=== PATIENT | male | born 1945 | race Caucasian/White ===

== ENCOUNTER 2017-06-05 13:46 | Outpatient (CLI) | payer MEDICARE | END 2017-06-05 13:47 | disposition home or self-care (01) | LOC: BICULT 13:46 | PROVIDERS: ATTEND Family Medicine | DX: E03.9 Hypothyroidism, unspecified (principal); N28.1 Cyst of kidney, acquired | CPT/HCPCS: 76536; 76770 ==

== ENCOUNTER 2017-07-11 09:28 | Outpatient (CLI) | payer MEDICARE | END 2017-07-11 09:29 | disposition home or self-care (01) | LOC: BICMRI 09:28 | PROVIDERS: ATTEND Psychiatry & Neurology Neurology | DX: R26.9 Unspecified abnormalities of gait and mobility (principal); M47.892 Other spondylosis, cervical region; G93.9 Disorder of brain, unspecified | CPT/HCPCS: 70551; 72141 ==

== ENCOUNTER 2019-01-27 10:42 | Outpatient (CLI) | payer MEDICARE ==
--- NOTE | 2019-01-27 10:58 | RAD ---
2 view chest: [01/27/2019] Comparion:01/11/2011 HISTORY: Cough for one month FINDINGS: There is a new focal area of pulmonary parenchymal opacity in the inferior left lung base l ateral to the left heart border. This likely overlies the cardiac silhouette on the lateral examination suggesting a focal area of infectious pneumonitis within the lingula. Midline sternotomy wires are present. There is mild increased linear interstitial density and pulmonary hyperinflation. IMPRESSION: New focal area of increased density within the lingula suggest infectious pneumonitis/asp iration. Recommend follow-up imaging following treatment to document resolution.
== END 2019-01-27 10:43 | disposition home or self-care (01) ==
LOC: BICRAD 10:42
PROVIDERS: ATTEND Family Medicine
DX: J01.01 Acute recurrent maxillary sinusitis (principal); J98.4 Other disorders of lung
CPT/HCPCS: 71046

== ENCOUNTER 2019-02-21 16:05 | Inpatient (IN) | payer MEDICARE ==
[~2019-02-21 16:05] MED LIST: Iopamidol-370 76% 500 ML 1 ML ONE
[2019-02-21 17:05] LABS: #Eosinphils 0.3 thou/uL (0.0-0.7); #Lymphocytes 2.3 thou/uL (1.20-3.40); #Monocytes 1.2 thou/uL (0.11-0.59); #Neutrophils 6.1 thou/uL (1.40-6.50); %Basophils 0.2 % (0.0-1.0); %Eosinophils 3.2 % (0.0-10.0); %Lymphocytes 23.5 % (21.0-51.0); %Monocytes 11.6 % (0.0-10.0); %Neutrophils 61.4 % (42.0-75.0); Hemoglobin 14.5 g/dL (14.0-18.0); Mean Corpuscular HGB CONC 32.3 g/dL (32.0-36.0); Mean Corpuscular Hemoglobin 30.2 pg (27.0-31.0); Mean Corpuscular Volume 93.3 fL (78.0-98.0); Mean Platelet Volume 7.1 fL (7.4-10.4); Platelet Count 222 thou/uL (130-400); RBC Distribution Width 12.7 % (11.5-14.5); Red Blood Cell (RBC) Count 4.81 mill/uL (4.70-6.10)
--- NOTE | 2019-02-21 17:19 | RAD ---
2 view chest: [02/21/2019] Comparison:01/27/2019 HISTORY: Three-week history of cough FINDINGS: There is an ill-defined focal area of increased density within the left lung base laterally , slightly less conspicuous than on the prior examination. Midline sternotomy wires are present. Mediastinal clips are noted. No pneumothorax or pleural fluid. Pulmonary hyperinflation noted. IMPRESSION: Persistent focus of increased density in the left costophrenic angle. Recommend CT examin ation to exclude an underlying pulmonary parenchymal nodule/mass. CODE T
[2019-02-21 17:25] LABS: ALT (SGPT) 15 U/L (8-55); AST (SGOT) 15 U/L (5-34); Albumin 3.9 g/dL (3.4-4.8); Alkaline Phosphatase 112 U/L (40-110); Anion Gap 10 mmol/L (10-20); BUN (Urea Nitrogen) 20 mg/dL (8.4-25.7); Bilirubin, Total 0.5 mg/dL (0.2-1.2); Calc. Creatinine Clearance 0 mL/min (70-130); Carbon Dioxide 29 mmol/L (23-31); Chloride 108 mmol/L (98-107); Estimated GFR-MDRD 42; Globulin 3.3 g/dL (2.4-3.5); Glucose 100 mg/dL (83-110); Potassium 4.7 mmol/L (3.5-5.1); Protein, Total 7.2 g/dL (5.8-8.1); Sodium 142 mmol/L (136-145)
[2019-02-21 17:29] LABS: Calcium 12.3 mg/dL (7.8-10.44)
--- NOTE | 2019-02-21 17:56 | CT ---
CTA Angio Chest W WO Con History: Elevated d-dimer. Productive cough. Comparison: Radiograph same day Findings: CT angiogram chest performed after the intravenous administration of contrast. 3-D renderin g provided. There is an embolism within the right lower lobe pulmonary artery extending into multiple segmental branches. There is also an embolus within a segment branch left upper lobe pulmona ry artery. Poor enhancement within the lingular branch left lower lobe with peripheral pleural consolidation which may reflect an infarct. No pleural effusion. Mild bronchiectasis both lower lobes with low-grade endobronchial debris likely reflecting resolving infection. Faint peripheral opacities right lower lobe. No pericardial effusion. Old L1 compression deformity of the superior endplate. No acute rib fracture . Impression: 1. Multifocal segmental pulmonary emboli as described without evidence of right heart strain.. 2. Findings of resolving right lower lobe and left lower lobe pneumonia. 3. Multifocal renal cysts. 4. Likely a small infarct within lateral lingula. 5. Small sebaceous cyst right lateral hemithorax axial image 110. Code CR: ER physician at 5:52 PM
[2019-02-21] MEDS ORDERED: Enoxaparin Sodium 30 MG/0.3 ML SYRINGE ONE ×2 (18:07→18:08)
[2019-02-21] MEDS ORDERED: Enoxaparin Sodium 60 MG/0.6 ML SYRINGE ONE (18:07)
--- NOTE | 2019-02-21 21:38 | HP ---
PRESENTING COMPLAINT: Worsening cough. HISTORY OF PRESENT ILLNESS: Mr. Tyler Worthy is a 73-year-old male with past medical history of hypertension; hyperlipidemia; diabetes mellitus; CAD, status post CABG; and former smoker, who developed cough since the last six weeks. He had a chest cough, nonproductive of sputum. The patient stated he received treatment with cefdinir and later Levaquin 3 weeks ago with no significant change in cough symptoms. He had a chest x-ray done 3 weeks ago that shows small right middle lobe infiltrate. He also received a dose of methylprednisolone. He denies any wheezing. He denies any shortness of breath. He states cough symptoms appear to be worse at night when lying down. He had a recent travel to [place]. Driving the car with his son, it nearly took over 11 days back and forth. He subsequently traveled another 300 miles by himself 3 days after returning from the [employer] journey. He denies any family history of blood clots. He has never had any bleeding disorder or clotting disorder in the past. He was sent by his PMD today for repeat workup because of the persistent cough. Further imaging showed evidence of multifocal pulmonary embolism as well as resolving right lower lobe pneumonia. There appears to be left lingular infarct. PAST MEDICAL HISTORY: Significant for hypertension, hyperlipidemia, coronary artery disease, diabetes mellitus, history of status post CABG, history of BPH, history of chronic kidney disease stage 3 with baseline creatinine ranging from 1.5 to 1.8 since the last one year. PAST SURGICAL HISTORY: Hernia repair, femoral fracture repair, and CABG. SOCIAL HISTORY: Patient resides in community with his spouse. He is fully functional at baseline. History of former tobacco use. No history of alcohol or illicit drug use. FAMILY HISTORY: Significant for mother with stomach cancer. ALLERGIES: NO KNOWN DRUG ALLERGIES. HOME MEDICATIONS: See medication list. REVIEW OF SYSTEMS: All systems review x14 were negative except as mentioned above. PHYSICAL EXAMINATION: CURRENT VITALS: Blood pressure of 159/69, pulse of 62, respiratory rate of 23, O2 saturation is 95% on room air. GENERAL: Average-built elderly male, sitting in bed. Intermittent cough spells noted. HEENT: Head is atraumatic, normocephalic. Pupils equal, reactive to light. Anicteric. [place] conjunctivae. Moist oral mucosa. NECK: No JVD. No carotid bruit. RESPIRATORY: Faint expiratory wheezes. No crepitations. CARDIOVASCULAR: S1, S2. Rate and rhythm regular. GASTROINTESTINAL: Abdomen is full, soft, nontender. Bowel sounds positive. EXTREMITIES: No pedal edema. No calf tenderness bilaterally. Negative Homans sign. NEUROLOGIC: Patient is alert, oriented. Cranial nerves 2-12 grossly intact. LABORATORY DATA: Sodium 142, potassium 4.7, creatinine 1.6, calcium 12.3. Troponin less than 0.01. BNP 53, chloride 108. WBC 10, platelet count 220, hemoglobin 14. EKG shows normal sinus rhythm at 72 beats per minute. Chest x-ray shows persistent focus of increased density in the left costophrenic angle. CT of the chest shows multifocal segmental pulmonary emboli without evidence of right heart strain. Findings of resolving right lower and left lower lobe pneumonia, multifocal renal cyst and small infarct in lateral lingula. IMPRESSION: 1. Multifocal pulmonary embolism. 2. Bilateral pneumonia - improving. 3. Hypertension. 4. Diabetes mellitus. 5. Hypercalcemia. 6. Chronic kidney disease stage 3 - stable. PLAN: 1. We will admit patient to observation. We will manage patient for the following;. a. Pulmonary embolism. We will obtain Factor V Leiden, prothrombin level as well as lupus anticoagulant level. Patient already given Lovenox. We will start patient on Eliquis. Risk of bleeding discussed. If unable to obtain Eliquis, we will consult Case Management for medication obtaining pre-approval. b. Continue to monitor overnight. Continue pulse oximetry. 2. Hypercalcemia. We will start gentle IV fluid hydration. We will obtain vitamin D and PTH levels. 3. Hypertension. Resume home medication regimen. 4. Chronic kidney disease stage 3, stable. Continue to monitor. 5. Diabetes mellitus. Insulin sliding scale. 6. DVT prophylaxis. Plan to start Eliquis. 7. Advanced directives. Patient is full code. TIME SPENT: Total time spent review of record discussion with patient and evaluation greater than 60 minutes. Job ID: [id number]
[2019-02-21] MEDS ORDERED: Dextrose 50% Abboject 50 ML SYRINGE SLOW IVP PRN (22:18)
[2019-02-21] MEDS ORDERED: Dextrose 5% in Water 1,000 ML IV PRN (22:18)
[2019-02-21] MEDS ORDERED: Acetaminophen 325 MG TAB PO PRN (22:18)
[2019-02-21] MEDS ORDERED: HumaLOG 300 UNITS/3 ML VIAL SC PRN (22:18)
[2019-02-21] MEDS ORDERED: Ondansetron PF 4 MG/2 ML Vial IVP PRN (22:18)
[2019-02-21] MEDS ORDERED: Guaifenesin DM 100-10/5 ML UDCUP PO PRN (22:18)
[2019-02-21] MEDS ORDERED: HYDROcodone/Acetaminophen 5/325 mg Tablet PO PRN (22:18)
[2019-02-21] MEDS ORDERED: Famotidine 20 MG TAB PO SCH (22:30)
[2019-02-21] MEDS ORDERED: Atorvastatin Calcium 20 MG TAB PO SCH (22:30)
[2019-02-21] MEDS ORDERED: guaiFENesin/DM ER PO SCH (22:30)
[2019-02-21] MEDS ORDERED: Metoprolol Tartrate 50 MG TAB PO SCH (22:30)
[2019-02-21] MEDS ORDERED: Terazosin HCl 1 MG CAP PO SCH (22:45)
[2019-02-21 22:49] VITALS: BMI 26.8
[2019-02-21] MEDS ORDERED: cefTRIAXone\\ROCEPHIN 2 GM in Sodium Chloride 0.9% 100 ML IVPB SCH (23:00)
[2019-02-21] MEDS: Sodium Chloride 0.9% 1,000 ML IV SCH (23:38)
[2019-02-22] MEDS ORDERED: Albuterol Sulfate 1.25 MG/3 ML NEB INH PRN (00:50)
[2019-02-22 04:29] LABS: #Basophils 0.1 thou/uL (0.0-0.2); #Eosinphils 0.4 thou/uL (0.0-0.7); #Lymphocytes 1.6 thou/uL (1.20-3.40); #Monocytes 0.9 thou/uL (0.11-0.59); #Neutrophils 5.4 thou/uL (1.40-6.50); %Basophils 0.8 % (0.0-1.0); %Eosinophils 4.3 % (0.0-10.0); %Lymphocytes 18.9 % (21.0-51.0); %Monocytes 10.8 % (0.0-10.0); %Neutrophils 65.3 % (42.0-75.0); Hemoglobin 12.9 g/dL (14.0-18.0); Mean Corpuscular HGB CONC 32.8 g/dL (32.0-36.0); Mean Corpuscular Hemoglobin 30.3 pg (27.0-31.0); Mean Corpuscular Volume 92.4 fL (78.0-98.0); Mean Platelet Volume 7.4 fL (7.4-10.4); Platelet Count 200 thou/uL (130-400); RBC Distribution Width 12.6 % (11.5-14.5); Red Blood Cell (RBC) Count 4.24 mill/uL (4.70-6.10); White Blood Cell (WBC) Count 8.3 thou/uL (4.8-10.8)
[2019-02-22 04:52] LABS: Anion Gap 6 mmol/L (10-20); BUN (Urea Nitrogen) 19 mg/dL (8.4-25.7); Calc. Creatinine Clearance 55 mL/min (70-130); Calcium 11.1 mg/dL (7.8-10.44); Carbon Dioxide 26 mmol/L (23-31); Chloride 112 mmol/L (98-107); Estimated GFR-MDRD 47; Glucose 107 mg/dL (83-110); Potassium 4.2 mmol/L (3.5-5.1); Sodium 140 mmol/L (136-145)
[2019-02-22] MEDS ORDERED: Levothyroxine Sodium 25 MCG TAB PO SCH (06:00)
[2019-02-22] MEDS ORDERED: Levothyroxine 175 MCG TAB PO SCH (06:00)
[2019-02-22] MEDS ORDERED: Levothyroxine Sodium 112 MCG TAB PO SCH (06:00)
--- NOTE | 2019-02-22 08:44 | ULT ---
EXAM: Bilateral lower extremity venous Doppler PROVIDED CLINICAL HISTORY: Pulmonary emboli FINDINGS: Grayscale and color Doppler sonography with spectral analysis was performed of the common femoral, fe moral, popliteal, posterior tibial, greater saphenous and profunda femoral veins bilaterally. The evaluated venous structures demonstrate a normal sonographic appearance. IMPRESSION: No sonographic evidence for lower extremity deep venous thrombosis.
[2019-02-22] MEDS ORDERED: Metoprolol Tartrate 50 MG TAB PO SCH (09:00)
[2019-02-22] MEDS ORDERED: Terazosin HCl 1 MG CAP PO SCH ×2 (09:00→21:00)
[2019-02-22] MEDS ORDERED: Alogliptin 6.25 MG TAB PO SCH (09:00)
[2019-02-22] MEDS ORDERED: Non-Formulary Item 1 EACH (Sitagliptin Phos/Metformin Hcl [Janumet] 1 TAB) PO SCH (09:00)
[2019-02-22] MEDS ORDERED: FLU VACC TS2019-20(65YR UP)/PF 180 MCG/0.5 ML SYRINGE IM ONE (09:00)
[2019-02-22] MEDS ORDERED: CLARITIN 10 MG PO SCH (09:00)
[2019-02-22] MEDS ORDERED: Carvedilol 25 MG TAB PO SCH (09:00)
[2019-02-22] MEDS ORDERED: Aspirin Chewable 81 MG TAB PO SCH (09:00)
[2019-02-22] MEDS ORDERED: Famotidine 20 MG TAB PO SCH (09:00)
[2019-02-22] MEDS ORDERED: guaiFENesin/DM ER PO SCH (09:00)
[2019-02-22] MEDS ORDERED: Apixaban 5 MG TAB PO SCH (09:00)
[2019-02-22] MEDS ORDERED: Loratadine 10 MG TAB PO SCH (09:00)
[2019-02-22] MEDS: metFORMIN 500 MG TAB PO SCH ×2 (09:06→16:59)
[2019-02-22] MEDS: Sodium Chloride 0.9% 1,000 ML IV SCH (14:07)
[2019-02-22 16:08] LABS: Hemoglobin 13.2 g/dL (14.0-18.0); Mean Corpuscular HGB CONC 32.2 g/dL (32.0-36.0); Mean Corpuscular Hemoglobin 30.4 pg (27.0-31.0); Mean Corpuscular Volume 94.3 fL (78.0-98.0); Mean Platelet Volume 6.9 fL (7.4-10.4); Platelet Count 217 thou/uL (130-400); RBC Distribution Width 12.8 % (11.5-14.5); Red Blood Cell (RBC) Count 4.36 mill/uL (4.70-6.10); White Blood Cell (WBC) Count 8.9 thou/uL (4.8-10.8)
[2019-02-22 16:09] VITALS: TEMP 97.5
[2019-02-22 16:10] VITALS: BP 128/57
[2019-02-22 16:27] LABS: Anion Gap 9 mmol/L (10-20); BUN (Urea Nitrogen) 18 mg/dL (8.4-25.7); Calc. Creatinine Clearance 56 mL/min (70-130); Calcium 10.7 mg/dL (7.8-10.44); Carbon Dioxide 27 mmol/L (23-31); Chloride 109 mmol/L (98-107); Estimated GFR-MDRD 47; Glucose 77 mg/dL (83-110); Potassium 4.6 mmol/L (3.5-5.1); Sodium 140 mmol/L (136-145)
--- NOTE | 2019-02-22 18:44 | DIS ---
DATE OF ADMISSION: 02/21/2019 DATE OF DISCHARGE: 02/22/2019 DISCHARGE DIAGNOSES: Acute multifocal segmental pulmonary emboli, right lower lobe and left lower lobe pneumonia improving, hypercalcemia, anemia CONSULTATIONS: None. PROCEDURES: None. BRIEF HISTORY OF PRESENT ILLNESS: This is a 73-year-old male with a history of CAD, status post CABG; diabetes; hypertension; and hyperlipidemia, who presented with a nonproductive cough for the past 6 weeks. The patient was treated for a right middle lobe pneumonia with cefdinir and Levaquin without any improvement. He also received steroids. Subsequently, the patient took an 8-day trip to the [place] with his granddaughter. He went to see his PCP yesterday for persistent cough and he was sent to the emergency room due to difficulty obtaining an O2 saturation. HOSPITAL COURSE: Acute multifocal segmental pulmonary emboli: The patient had a CTA of his chest on admission, which showed multifocal segmental PE. He was initially started on Eliquis. He had genetic workup sent for factor V Leiden, prothrombin, and lupus anticoagulant. The patient was noted to have normal vital signs and maintained O2 saturation of 92% on room air. He ambulated without any hypoxia and his vitals were hemodynamically stable. The patient stated that his cough resolved after starting anticoagulation. He will be discharged on Eliquis 10 mg twice daily for 7 days, then 5 mg twice daily after that. Bilateral Dopplers were done, which were negative for DVT. Right lower lobe and left lower lobe pneumonia: The patient was treated with IV Levaquin and ceftriaxone during his hospital stay. He had no fever and no white count. Due to improving symptoms, I will discharge on cefpodoxime and azithromycin to complete a 7-day course of antibiotics. He can follow up with his PCP and will need a repeat chest x-ray in 6 weeks. Anemia: The patient was noted to have a hemoglobin of 12.9 on the day of discharge. He reported no signs of bleeding. This was thought to be likely secondary to the IV fluids he was receiving. Repeat CBC showed an improvement in his hemoglobin to 13.2. The patient can have a repeat CBC followed up as an outpatient and repeat anemia workup done if necessary. Hypercalcemia: The patient was noted to have a calcium level of 12.3 on admission. According to the , the patient refuses to drink water and does not drink adequately. He was started on IV fluids and his calcium came down to 11.1 on . The patient denied any symptoms of hypercalcemia and expressed interest in going home. Therefore, repeat BMP was ordered, which showed a calcium level of 10.7 which is improving. Of note, his PTH level was elevated at 204.7. The patient states that his thyroid medication was reduced recently by his PCP. The patient was advised to have outpatient workup of primary hyperparathyroidism and to have repeat calcium level done later this week. His states she will monitor his water intake and make sure he drinks adequately. Hypothyroidism: The patient was resumed on his outpatient levothyroxine. Diabetes: The patient was resumed on his Januvia/metformin. CAD, status post CABG: The patient is on aspirin and atorvastatin as well as Coreg. BPH: The patient is on terazosin. DISCHARGE PHYSICAL EXAMINATION: VITAL SIGNS: Temperature 97.5, heart rate 66, respiratory rate 17, O2 saturation 92% on room air, and BP 128/57. GENERAL: Alert, awake, and oriented x3. No acute distress. CVS: Regular rate and rhythm with no murmurs, rubs, or gallops. LUNGS: Clear to auscultation bilaterally. ABDOMEN: Positive bowel sounds, soft, nontender, and nondistended. EXTREMITIES: No swelling noted. The patient has intact pulses. PERTINENT LABORATORY DATA: CBC: Hemoglobin 13.2, hematocrit 41.1. BMP: Creatinine is 1.45, which is his baseline. Calcium is 10.7. PERTINENT IMAGING STUDIES: Chest x-ray on 02/21: Shows increased density in the left costophrenic angle. CT exam recommended. CTA thorax on 02/21: Shows multifocal segmental pulmonary emboli. Resolving right lower lobe and left lower lobe pneumonia. Multifocal renal cysts and a small infarct within the lateral lingula. There is also small sebaceous cyst in the right lateral hemithorax. There is also mild bronchiectasis in both lower lobes. DISCHARGE CONDITION: Stable. ACTIVITY: As tolerated. DIET RESTRICTION: Diabetic diet. DISCHARGE MEDICATIONS: New medications: 1. Cefpodoxime 200 mg p.o. q.12 hours for 7 days. 2. Eliquis 10 mg p.o. b.i.d. for 7 days, then 5 mg p.o. b.i.d. after. 3. Azithromycin 500 mg p.o. daily x1, then 250 mg p.o. daily for 4 days. All other discharge home medications were continued. DISCHARGE INSTRUCTIONS: The patient is to follow up with his PCP in a week to have repeat calcium level and repeat CBC drawn. He should have a repeat chest x-ray in 6 weeks. He should come back to the ER if he has any signs of bleeding, altered mental status, constipation, or severe abdominal pain since this may be sign of hypercalcemia. He should have his parathyroid hormone level rechecked and consider workup for primary hyperparathyroidism. Job ID: [id number] LEILANI
[2019-02-22] MEDS ORDERED: Atorvastatin Calcium 20 MG TAB PO SCH (21:00)
== END 2019-02-22 19:35 | disposition home or self-care (01) | DRG 175 ==
LOC: ERS 16:05 → 2NO 22:08
PROVIDERS: ADMIT Internal Medicine; ATTEND Internal Medicine
DX: I26.94 Multiple subsegmental thrombotic pulmonary emboli without acute cor pulmonale (principal); J18.9 Pneumonia, unspecified organism; D64.9 Anemia, unspecified; E83.52 Hypercalcemia; E03.9 Hypothyroidism, unspecified; I25.10 Atherosclerotic heart disease of native coronary artery without angina pectoris; Z95.1 Presence of aortocoronary bypass graft; N40.0 Benign prostatic hyperplasia without lower urinary tract symptoms; E78.5 Hyperlipidemia, unspecified; I12.9 Hypertensive chronic kidney disease with stage 1 through stage 4 chronic kidney disease, or unspecified chronic kidney disease; E11.22 Type 2 diabetes mellitus with diabetic chronic kidney disease; N18.3 Chronic kidney disease, stage 3 (moderate)
CPT/HCPCS: 36415; 36416; 71046; 71275; 80048; 80053; 81240; 81241; 82306; 83880; 83970; 84075; 84484; 85025; 85379; 93005; 93970; 94760; 96372; J0696; J1650; J1956; J3490; Q9967

== ENCOUNTER 2021-04-28 15:08 | Outpatient (CLI) | payer MEDICARE | END 2021-04-28 15:09 | disposition home or self-care (01) | LOC: BICRAD 15:08 | PROVIDERS: ATTEND Family Medicine | DX: J18.9 Pneumonia, unspecified organism (principal) | CPT/HCPCS: 71046 ==

== ENCOUNTER 2022-07-10 14:21 | Outpatient (CLI) | payer MEDICARE | END 2022-07-10 14:22 | disposition home or self-care (01) | LOC: ULT 14:21 | PROVIDERS: ATTEND Family Medicine | DX: E21.3 Hyperparathyroidism, unspecified (principal); E03.4 Atrophy of thyroid (acquired); E04.1 Nontoxic single thyroid nodule | CPT/HCPCS: 76536 ==

== ENCOUNTER 2022-10-19 08:57 | Emergency (ER) | payer MEDICARE | END 2022-10-19 12:16 | disposition home or self-care (01) | LOC: ERS 08:57 | DX: L60.0 Ingrowing nail (principal); E11.9 Type 2 diabetes mellitus without complications; E78.00 Pure hypercholesterolemia, unspecified; I10 Essential (primary) hypertension; E03.9 Hypothyroidism, unspecified; Z87.891 Personal history of nicotine dependence; Z79.899 Other long term (current) drug therapy; Z79.84 Long term (current) use of oral hypoglycemic drugs; Z79.82 Long term (current) use of aspirin | CPT/HCPCS: 11765; 36415; 85379 ==

== ENCOUNTER 2023-01-17 10:21 | Outpatient (CLI) | payer MEDICARE | END 2023-01-17 10:22 | disposition home or self-care (01) | LOC: BICRAD 10:21 | PROVIDERS: ATTEND Family Medicine | DX: J16.8 Pneumonia due to other specified infectious organisms (principal) | CPT/HCPCS: 71046 ==